=== PATIENT | female | born 1965 | race Caucasian/White ===

== ENCOUNTER 2019-01-10 11:07 | Emergency (ER) | payer BC ==
[2019-01-10] MEDS ORDERED: Tetracaine HCl/PF 0.5% 4 ML Bottle EYERT ONE (11:18)
--- NOTE | 2019-01-10 11:47 | EDM.PDOC ---
ED HPI GENERAL MEDICAL PROBLEM - General Chief Complaint: Eye Problems Stated Complaint: SOMETHING IN RT EYE Time Seen by Provider: 01/10/19 11:09 Source of Information: Reports: Patient History Limitations: Reports: No Limitations - History of Present Illness INITIAL COMMENTS - FREE TEXT/NARRATIVE: HISTORY AND PHYSICAL: History of present illness: Patient is a 53-year-old female presents to the ED today with concern of right eye pain since early this morning. Patient states she was working overnight at work and started noticing her right eye was becoming more painful. Patient states she took out her contacts thinking maybe they were dry or that she got something in her eye. Patient states the pain has been progressively more irritating to her throughout the day. Patient does express pain to the eye with light and she states the discomfort has made her feel nauseous but she has not vomited. Patient states she does have blurry vision in the eye but believes is due to her taking out her contacts. Patient denies any other symptoms at this time. Patient denies fever, chills, chest pain, shortness of breath, or cough. Denies headache, neck stiff ness, change in vision, syncope, or near syncope. Denies vomiting, abdominal pain, diarrhea, constipation, or dysuria. Has not noted any blood in urine or stool. Patient has been eating and drinking appropriately. Review of systems: As per history of present illness and below otherwise all systems reviewed and negative. Past medical history: As per history of present illness and as reviewed below otherwise noncontributory. Surgical history: As per history of present illness and as reviewed below otherwise noncontributory. Social history: See social history for further information Family history: As per history of present illness and as reviewed below otherwise noncontributory. Physical exam: General: Patient is alert, oriented, and in no acute distress. Patient sitting comfortably on exam table. She does appear irritated with her eye and holding it shot HEENT: Atraumatic, normocephalic, pupils equal and reactive bilaterally,EOMs intact. Right sclera is injected, negative for conjunctival pallor or scleral icterus, mucous membranes moist, TMs normal bilaterally, throat clear, neck supple, nontender, trachea midline. No drooling or trismus noted. No meningeal signs. No hot potato voice noted. Lungs: Clear to auscultation, breath sounds equal bilaterally, chest nontender. Heart: S1S2, regular rate and rhythm without overt murmur Abdomen: Soft, nondistended, nontender. Negative for masses or hepatosplenomegaly. Negative for costovertebral tenderness. Pelvis: Stable nontender. Genitourinary: Deferred. Rectal: Deferred. Skin: Intact, warm, dry. No lesions or rashes noted. Extremities: Atraumatic, negative for cords or calf pain. Neurovascular unremarkable. Neuro: Awake, alert, oriented. Cranial nerves II through XII unremarkable. Cerebellum unremarkable. Motor and sensory unremarkable throughout. Exam nonfocal. Notes: Dr. Almendarez verbally involved in patient care. On exam, there is no clear evidence as to what is causing patient's eye discomfort. Unable to appreciate any foreign body or corneal abrasion, but patient does appear to be in discomfort to the eye and the sclera is injected. Dr. Kwok, senior brand manager sap security consultant, was contacted on patient and will see patient immediately following this appointment at his eye clinic. Discussed the importance for going directly to this appointment and not taking any stops. Voices understanding and is agreeable to plan of care. Denies any further questions or concerns at this time. Diagnostics: Fluorescein with woodslamp Therapeutics: Tetracaine Prescription: None Impression: Right eye pain, unspecified Plan: 1. Transfer to [facility], to Dr. Kwok, via private vehicle. 2. Meet Dr. Kwok directly following ER visit. He is expecting you in 15 minutes. Go right to [facility], Door [address] Kwok wants you to have his number, call [phone] when you arrive at Door 2. 4. Return to the ED as needed and as discussed. Definitive disposition and diagnosis as appropriate pending reevaluation and review of above. Right Eye Pain Score (Numeric/FACES): 8 - Related Data Allergies Allergy/AdvReac Type Severity Reaction Status Date / Time No Known Allergies Allergy Verified 01/10/19 11:21 Home Meds: Home Meds . [No Known Home Meds] 01/10/19 [History] Past Medical History HEENT History: Reports: Impaired Vision Endocrine/Metabolic History: Reports: Other (See Below) Other Endocrine/Metabolic History: Goiter removed - Infectious Disease History Infectious Disease History: Reports: Chicken Pox, MRSA - Past Surgical History HEENT Surgical History: Reports: None Endocrine Surgical History: Reports: None Social & Family History - Family History Family Medical History: Noncontributory - Tobacco Use Smoking Status *Q: Never Smoker Second Hand Smoke Exposure: No - Caffeine Use Caffeine Use: Reports: Coffee - Recreational Drug Use Recreational Drug Use: No ED ROS GENERAL - Review of Systems Review Of Systems: ROS reveals no pertinent complaints other than HPI. ED EXAM GENERAL W FULL EYE - Physical Exam Exam: See Below (See dictation) Course - Vital Signs Last Recorded V/S: Last Vital Signs Temp 36.6 C 01/10/19 11:21 Pulse 78 01/10/19 11:21 Resp 17 01/10/19 11:21 BP 150/90 H 01/10/19 11:21 Pulse Ox 96 01/10/19 11:21 - Orders/Labs/Meds Meds: Medications Discontinued Medications Generic Name Dose Route Start Last Admin Trade Name Freq PRN Reason Stop Dose Admin Tetracaine HCl 1 ml 01/10/19 11:18 Tetracaine 0.5% Steri-Unit Rosemarie EYERT 01/10/19 11:19 ASDIRECTED ONE Departure - Departure Time of Disposition: 11:48 Disposition: DC/Tfer to Other 70 Clinical Impression: Acute right eye pain - Discharge Information Referrals: PCP,None [Primary Care Provider] - Forms: ED Department Discharge Additional Instructions: The following information is given to patients seen in the emergency department who are being discharged to home. This information is to outline your options for follow-up care. We provide all patients seen in our emergency department with a follow-up referral. The need for follow-up, as well as the timing and circumstances, are variable depending upon the specifics of your emergency department visit. If you don't have a primary care physician on staff, we will provide you with a referral. We always advise you to contact your personal physician following an emergency department visit to inform them of the circumstance of the visit and for follow-up with them and/or the need for any referrals to a consulting specialist. The emergency department will also refer you to a specialist when appropriate. This referral assures that you have the opportunity for follow-up care with a specialist. All of these measure are taken in an effort to provide you with optimal care, which includes your follow-up. Under all circumstances we always encourage you to contact your private physician who remains a resource for coordinating your care. When calling for follow-up care, please make the office aware that this follow-up is from your recent emergency room visit. If for any reason you are refused follow-up, please contact the [facility] Emergency Department at and asked to speak to the emergency department charge nurse. [facility] [address] [place] [address] [facility] [address] [place] [id number] 1. Transfer to [facility], to Dr. Kwok, via private vehicle. Information is provided above. 2. Meet Dr. Kwok directly following ER visit. He is expecting you in 15 minutes. Go right to [facility], Door [address]. 3[address] Kwok wants you to have his number, call [phone] when you arrive at Door 2. 4. Return to the ED as needed and as discussed.
== END 2019-01-10 12:03 | disposition other institution (70) ==
LOC: MW.ED 11:07
DX: H57.11 Ocular pain, right eye (principal)
CPT/HCPCS: 99283